=== PATIENT | male | born 1980 | race African-American/Black ===

== ENCOUNTER 2019-05-27 17:46 | Outpatient (CLI) | payer OTHER | END 2019-05-27 20:56 | disposition home or self-care (01) | LOC: LAB 17:46 | DX: R07.9 Chest pain, unspecified (principal) | CPT/HCPCS: 84484 ==

== ENCOUNTER 2019-05-28 07:14 | Outpatient (CLI) | payer OTHER | END 2019-05-28 19:04 | disposition home or self-care (01) | LOC: RAD 07:14 | DX: R07.9 Chest pain, unspecified (principal) ==

== ENCOUNTER 2022-07-18 11:58 | Emergency (ER) | payer OTHER ==
[~2022-07-18] VITALS: Ht 165.1 cm; Wt 75.8 kg
[2022-07-18 12:10] VITALS: TEMP 98
[2022-07-18 14:49] VITALS: BP 112/65
== END 2022-07-18 14:50 | disposition home or self-care (01) ==
LOC: ED 11:58
DX: S00.03XA Contusion of scalp, initial encounter (principal); S13.4XXA Sprain of ligaments of cervical spine, initial encounter; W18.09XA Striking against other object with subsequent fall, initial encounter; Y93.89 Activity, other specified; Y92.89 Other specified places as the place of occurrence of the external cause
CPT/HCPCS: 80307; 80320; 90471; 90715; 99283